=== PATIENT | female | born 1995 | race American Indian/Alaskan Native ===

== ENCOUNTER 2018-08-25 06:58 | Inpatient (IN) | payer MEDICAID ==
[2018-08-25] MEDS ORDERED: SUBLIMAZE ONE (07:31)
[2018-08-25] MEDS ORDERED: BRETHINE SUB-Q PRN (07:32)
[2018-08-25] MEDS ORDERED: BRETHINE IVP PRN (07:32)
[2018-08-25] MEDS ORDERED: SUBLIMAZE IV PRN (07:32)
[2018-08-25] MEDS ORDERED: XYLOCAINE 2% INFILTRATI NR (07:32)
[2018-08-25] MEDS ORDERED: AMPICILLIN/NS 2 GM/100 ML 2 GM/100 ML BAG IV ONE (07:36)
[2018-08-25] MEDS ORDERED: PITOCin/NS 30 UNIT/500ML 30 UNITS/500 ML BAG IV SCH (08:00)
[2018-08-25] MEDS ORDERED: LACTATED RINGERS 1,000 ML IV SCH (08:00)
[2018-08-25] MEDS ORDERED: PITOCin/NS 20 UNIT/1000ML DRIP 20 UNITS/1,000 ML BAG IV SCH (08:00)
[2018-08-25] MEDS ORDERED: LANSINOH TP PRN (09:43)
[2018-08-25] MEDS ORDERED: ZOFRAN IV PRN (09:43)
[2018-08-25] MEDS ORDERED: PHENERGAN PO PRN (09:43)
[2018-08-25] MEDS ORDERED: BENADRYL PO PRN (09:43)
[2018-08-25] MEDS ORDERED: TUCKS PAD TP PRN (09:43)
[2018-08-25] MEDS ORDERED: TYLENOL PO PRN (09:43)
[2018-08-25] MEDS ORDERED: NORCO 5/325 PO PRN (09:43)
--- NOTE | 2018-08-25 09:51 | History and Physical Report ---
History of Present Illness Date of examination: 08/25/18 (Pt arrived via EMS) Date of admission: 08/25/18 07:00 Chief complaint: Intense labor pains History of present illness: 23 yo AA Fe , MAURI 09/03/2018 (per pt; records not available) presents via EMS in active labor with SROM 08/25/2018 @ 06:20 (lg amt clear fluid). Pt reports care with [employer]. records not available (requested). Pt denies any medical history. Reports GBS swab done but she doesn't know the results. 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 denies: abnormal PAP smear, chlamydia, gonorrhea, hepatitis B, hepatitis C, herpes, HIV, syphilis, trichomonas Family/Genetic History: none Social history: no significant social history, single, lives with family (Family present and supportive), full code. denies: smoking, alcohol abuse, prescription drug abuse, IV drug use - Obstetrical History Expected Date of Delivery: 09/03/18 (Per pt report; PNR not available (requested)) Actual Gestation: 38 Week(s) 5 Day(s) : 4 Para: 0 Hx # Term Pregnancies: 0 Number of Pregnancies: 0 Spontaneous Abortions: 0 Induced : 3 Number of Living Children: 0 Medications and Allergies Allergies Allergy/AdvReac Type Severity Reaction Status Date / Time No Known Allergies Allergy Verified 07/11/14 02:54 Home Medications Medication Instructions Recorded Confirmed Last Taken Type Acetaminophen/Codeine [Tylenol #3] 1 tab PO Q6H PRN #20 tab 10/18/14 Unknown Rx Ondansetron [Zofran ODT TAB] 4 mg PO Q6H #20 tab.rapdis 10/18/14 Unknown Rx Pnv 21/Iron Ps,Heme Ppep/Folic 1 each PO QDAY #30 tablet 10/18/14 Unknown Rx [Prefera Ob Tablet] cephALEXin [Keflex] 500 mg PO Q6H #28 capsule 10/18/14 Unknown Rx Active Meds: Active Medications Ephedrine Sulfate (Ephedrine Sulfate) 10 mg IV Q2M PRN PRN Reason: Hypotension Fentanyl (Sublimaze) 100 mcg IV Q2H PRN PRN Reason: Labor Pain Lactated Ringer's (Lactated Ringers) 1,000 mls @ 125 mls/hr IV DIRECT ELIGIO Last Admin: 08/25/18 07:41 Dose: 125 mls/hr Documented by: Oxytocin/Sodium Chloride (Pitocin/Ns 20 Unit/1000ml Drip) 20 units in 1,000 mls @ 125 mls/hr IV DIRECT ELIGIO Oxytocin/Sodium Chloride (Pitocin/Ns 30 Unit/500ml) 30 units in 500 mls @ 1 mls/hr IV TITR ELIGIO; Protocol Lidocaine (Xylocaine 2%) 20 ml INFILTRATI ONCE NR Stop: 08/25/18 16:00 Mineral Oil (Mineral Oil) 30 ml PO QHS PRN PRN Reason: Constipation Terbutaline Sulfate (Brethine) 0.25 mg SUB-Q ONCE PRN PRN Reason: Hyperstimulation/Hypertonicity Stop: 08/25/18 16:00 Terbutaline Sulfate (Brethine) 0.25 mg IVP ONCE PRN PRN Reason: Hyperstimulation/Hypertonicity Stop: 08/25/18 16:00 Review of Systems Constitutional: other (Denies) Cardiovascular: no chest pain, no shortness of breath Respiratory: no shortness of breath Breasts: normal Gastrointestinal: no nausea, no vomiting, no diarrhea Genitourinary: normal appearance, vaginal bleeding (normal show), leakage of fluid (SROM 06:20, lg amt clear fluid), contractions (Reports contractions started at 6am), no genital sores Musculoskeletal: other (Denies) Integumentary: no rash, no sores, no lesions Neurological: other (Denies) Psychiatric: other (Denies) Endocrine: other (Denies) - Vital Signs Vital signs: Vital Signs Pulse BP 71 137/65 08/25/18 07:20 08/25/18 07:20 Temp Pulse Resp BP Pulse Ox 98.4 F 80 18 164/78 08/25/18 07:21 08/25/18 09:33 08/25/18 07:35 08/25/18 09:33 - Physical Exam Breasts: Positive: normal Cardiovascular: Regular rate, Normal S1, Normal S2, No murmurs Lungs: Positive: Clear to auscultation, Normal air movement Abdomen: Positive: normal appearance, soft, normal bowel sounds, other (Gravid). Negative: distention Genitourinary (Female): Positive: normal external genitalia, normal perenium (Clear fluid noted) Vulva: both: normal Vagina: Positive: normal moisture (Clear fluid leaking) Uterus: Positive: enlarged (gravid) Anus/Rectum: Positive: normal perianal skin Extremities: Positive: normal Deep Tendon Reflex Grade: Normal +2 - Obstetrical FHR: category 1 Uterine Contraction Monitor Mode: External Cervical Dilatation: 8 (On admission per sap senior developer) Cervical Effacement Percentage: 100 station: 0 Uterine Contraction Frequency (min): 2-3 Uterine Contraction Duration: 60-90 Uterine Contraction Pattern: Regular Uterine Tone Measurement Phase: Resting Uterine Contraction Intensity: Strong/Firm Results All other labs normal. Assessment and Plan A: Term IUP at 38w5d (per pt; PNR not available) GBS unknown Category 1 tracing SROM 08/25/2018 @ 06:20, lg amt clear fluid Active labor P: Admit to L&D; Routine labor orders GBS prophylaxis Anticipate
[2018-08-25] MEDS ORDERED: DULCOLAX PR PRN (10:00)
[2018-08-25] MEDS ORDERED: SODIUM CHLORIDE FLUSH SYRINGE 10 ML IV NR (10:00)
--- NOTE | 2018-08-25 10:02 | Procedure Note ---
OB Delivery Note - Delivery Date of Delivery: 08/25/18 (08:47) Surgeon: BIB GERMAN (ENRRIQUE) Estimated blood loss: 200cc - Vaginal Delivery presentation: vertex Delivery position: OA Intrapartum events: precipitous labor- <3hr Delivery induction: none Delivery monitor: external FHT, external uterine Route of delivery: (08:47) Delivery placenta: spontaneous (08:55) Delivery cord: 3 umbilical vessels Delivery laceration: 2nd degree Delivery repair: vicryl (2-[address]) Delivery comments: viable female SOL presentation at 08:47. Vigorous infant placed [id number]-[id number] on mothers abdomen. Delayed cord clamping, then cut by Pt mother with my guidance. Cord blood collected per hospital protocol. Spontaneous ochoa delivery of intact placenta at 08:55. 3VC. Discarded. FF@U-2, bleeding small. 2nd degree perineal laceration repaired under local anesthesia using 2-[address] Pt tolerated well. EBL 200cc. and mother left in stable condition in L&D. - A at 1 minute: 8 at 5 minutes: 9 Gender: Female (7lbs 9oz, 3201 grams, 18.5")
[2018-08-25 11:08] LABS: Hematocrit 24.5 % (30.3-42.9); Hemoglobin 7.6 gm/dl (10.1-14.3); Mean Corpuscular HGB Conc 31 % (30-34); Mean Corpuscular Volume 74 fl (79-97); Platelet Count 190 K/mm3 (140-440); Red Cell Distribution Width 17.2 % (13.2-15.2)
[2018-08-25] MEDS: IBUPROFEN PO SCH ×3 (12:33→18:13)
[2018-08-25] MEDS ORDERED: MILK OF MAGNESIA PO PRN (22:00)
[2018-08-25] MEDS ORDERED: MINERAL OIL PO PRN (22:00)
[2018-08-25 22:39] LABS: Hematocrit 20.6 % (30.3-42.9); Hemoglobin 6.8 gm/dl (10.1-14.3)
[2018-08-26] MEDS: IBUPROFEN PO SCH ×3 (01:59→18:45)
--- NOTE | 2018-08-26 10:29 | Progress Note ---
Assessment and Plan A: day 1 S/P spontaneous vaginal delivery. Severe anemia due to and blood loss. P: Patient refused blood transfusion for severe anemia. Supplement with iron TID. Advised patient re: iron rich foods. Subjective - Subjective Date of service: 08/26/18 Principal diagnosis: day 1 S/P Interval history: day 1 S/P spontaneous vaginal delivery. Patient is doing well. She is voiding without difficulty, ambulating well, and tolerating a regular diet. Patient reports small amount of lochia and no clots. Patient denies headache, dizziness, fatigue, shortness of breath, chest pain, abdominal pain, leg pain, or heavy vaginal bleeding. Patient refused blood transfusion for severe anemia. Patient reports: appetite normal, voiding normally, pain well controlled, flatus, ambulating normally, no dizzy ambulation, no nauseated : doing well Objective - Vital Signs Latest vital signs: Vital Signs Temp Pulse Resp BP BP Pulse Ox 08/26/18 02:59 18 08/26/18 01:59 18 08/25/18 23:00 98.6 F 78 18 117/74 08/25/18 21:43 98.4 F 52 L 18 133/67 99 08/25/18 19:13 18 08/25/18 18:47 144/77 08/25/18 17:28 99.2 F 51 L 20 162/87 99 08/25/18 11:45 98.7 F 63 18 131/80 97 08/25/18 10:47 76 145/81 08/25/18 10:32 71 143/78 Intake and Output 08/25/18 08/26/18 08/26/18 23:59 07:59 15:59 Intake Total 240 360 Balance 240 360 Intake: Intake, Free Water 240 360 Other: # Voids Void 1 1 - Exam Cardiovascular: Present: Regular rate, Normal S1, Normal S2 Lungs: Present: Clear to auscultation Abdomen: Present: normal appearance, soft. Absent: distention, tenderness, guarding, rigidity Uterus: Present: normal, firm, fundal height below umbilicus Extremities: Present: normal. Absent: tenderness, edema - Labs Labs: Abnormal lab results 08/25/18 08/25/18 Range/Units 10:55 22:15 WBC 13.2 H (4.5-11.0) K/mm3 RBC 3.30 L (3.65-5.03) M/mm3 Hgb 7.6 L 6.8 L (10.1-14.3) gm/dl Hct 24.5 L 20.6 L (30.3-42.9) % MCV 74 L (79-97) fl MCH 23 L (28-32) pg RDW 17.2 H (13.2-15.2) %
[2018-08-26] MEDS: FEOSOL PO SCH ×2 (12:49→20:48)
[2018-08-26] MEDS ORDERED: NACL 0.9% 500 ML 500 ML IV SCH (17:06)
--- NOTE | 2018-08-26 17:17 | Event Note ---
I aad detailed discussion with patient and her mother concerning her severe anemia (6.8/20.6). The patient does admit she feels her heart beating in her chest. She has gotten up from her bed 5x but denies lightheaded or dizziness. She states she was prescribed iron pills during her course but they "made her sick" so she stopped taking them. We discussed the interval between pregnancies and importance of rebuilding iron stores before re-attempting . We had detailed discussion about the risk of of blood transfusions including but not limited to viral, bacterial and acute blood reactions. I explained to patient she has option of taking intramuscular iron but that would take several days to weeks to have an effect. After some consideration, she has agreed to a blood transfusion for severe anemia due majority chronic anemia and in part due to acute blood loss associated with routine vaginal delivery. Plan: 1. Pretreat with Tylenol 650mg PO x 1 and Benadryl 25mg PO X1. 2. Type, cross and transfusion 2 units packed red blood cells. 3. Recheck CBC 4 hrs post-transfusion.
[2018-08-27] MEDS: FEOSOL PO SCH (08:00)
[2018-08-27 12:27] LABS: Hematocrit 28.7 % (30.3-42.9); Hemoglobin 9.1 gm/dl (10.1-14.3)
--- NOTE | 2018-08-27 17:15 | Progress Note ---
Assessment and Plan S: day 2 S/P spontaneous vaginal delivery. Anemia secondary to and blood loss. P: Discharge patient home today. Advised patient to continue her vitamins and iron supplements (iron TID) at home. discharge instructions and warning signs discussed with patient. Advised patient to avoid driving, itercourse, lifting and heavy housework. Advised patient to follow up at [facility] in 2 weeks. Patient voiced understanding of instructions. Subjective - Subjective Date of service: 08/27/18 Principal diagnosis: day 2 S/P Interval history: day 2 S/P spontaneous vaginal delivery. Patient is doing well. She is voiding without difficulty, ambulating well, and tolerating a regular diet. Patient reports small amount of lochia and no clots. Patient denies headache, dizziness, fatigue, shortness of breath, chest pain, abdominal pain, leg pain, or heavy vaginal bleeding. Patient took blood transfusion for anemia. Has been taking iron TID. Patient reports: appetite normal, voiding normally, pain well controlled, flatus, ambulating normally, no dizzy ambulation, no nauseated [place]: doing well Objective - Vital Signs Latest vital signs: Vital Signs Temp Pulse Resp BP BP Pulse Ox 08/27/18 07:52 98.2 F 53 L 18 127/88 08/27/18 05:37 98.9 F 57 L 20 151/88 08/27/18 05:07 98.8 F 59 L 20 152/90 08/27/18 04:37 98.5 F 51 L 20 137/91 99 08/27/18 04:07 98.6 F 54 L 20 150/84 08/27/18 03:52 97.9 F 52 L 20 157/85 08/27/18 02:40 98.2 F 52 L 20 155/92 99 08/27/18 02:29 98.3 F 53 L 20 141/72 08/27/18 01:59 98.0 F 51 L 20 141/88 08/27/18 01:29 98.0 F 52 L 20 142/79 08/27/18 00:59 98.5 F 52 L 18 140/81 08/27/18 00:29 98.9 F 53 L 18 128/71 08/27/18 00:14 98.7 F 82 18 105/56 08/27/18 00:00 98.2 F 53 L 18 140/71 98 08/26/18 20:51 98.6 F 54 L 18 142/93 97 08/26/18 18:45 20 Intake and Output 08/27/18 08/27/18 08/27/18 07:59 15:59 23:59 Intake Total 980 Balance 980 Intake: Oral 480 Blood Product 500 Leukoreduced Red Blood 250 Cells Unit [id number] Leukoreduced Red Blood 250 Cells Unit [id number] Other: Total, Intake Amount 480 - Exam Cardiovascular: Present: Regular rate, Normal S1, Normal S2, Other Lungs: Present: Clear to auscultation Abdomen: Present: normal appearance, soft. Absent: distention, tenderness, guarding, rigidity Uterus: Present: normal, firm, fundal height below umbilicus. Absent: bogginess, tenderness Extremities: Present: normal. Absent: tenderness, edema - Labs Labs: Abnormal lab results 08/25/18 08/27/18 Range/Units 10:55 11:49 Hgb 9.1 L (10.1-14.3) gm/dl Hct 28.7 L D (30.3-42.9) % Crossmatch See Detail
--- NOTE | 2018-08-27 17:18 | Discharge Summary ---
<RON GONZALEZ - Last Filed: 08/27/18 17:16> Providers - Providers Date of Admission: 08/25/18 07:00 Date of discharge: 08/27/18 Attending physician: DWAYNE SÁNCHEZ MD None Primary care physician: DWAYNE SÁNCHEZ MD Hospitalization Reason for admission: active labor Delivery: Episiotomy: none Laceration: 2nd degree Other procedures: none complications: none Discharge diagnosis: IUP at term delivered baby: female Pertinent studies: Labs Hospital course: Blood transfusion for severe anemia; otherwise normal hospital course. Condition at discharge: Good Disposition: DC-01 TO HOME OR SELFCARE - Discharge Diagnoses (1) Term delivered Status: Acute (2) Anemia, blood loss Status: Acute Plan - Provider Discharge Summary Activity: routine, no sex for 6 weeks, no heavy lifting 4 weeks, no strenuous exercise Diet: routine Instructions: routine Additional instructions: Take your vitamins and iron supplements at home. Call your doctor immediately for: * Fever > 100.5 * Heavy vaginal bleeding ( >1 pad per hour) * Severe persistent headache * Shortness of breath * Reddened, hot, painful area to leg or breast - Follow up plan Follow up: DWAYNE SÁNCHEZ MD [Primary Care Provider] - 14 Days <RADHA KING - Last Filed: 08/28/18 01:27> Providers - Providers Date of Admission: 08/25/18 07:00 Attending physician: DWAYNE SÁNCHEZ MD Primary care physician: DWAYNE SÁNCHEZ MD Hospitalization Pertinent studies: Laboratory Tests 08/25/18 08/25/18 08/25/18 10:55 10:55 10:55 WBC 13.2 H RBC 3.30 L Hgb 7.6 L Hct 24.5 L MCV 74 L MCH 23 L MCHC 31 RDW 17.2 H Plt Count 190 Sodium Potassium Chloride Carbon Dioxide Anion Gap BUN Creatinine Estimated GFR BUN/Creatinine Ratio Glucose Calcium Total Bilirubin AST ALT Alkaline Phosphatase Total Protein Albumin Albumin/Globulin Ratio Urine Color Urine Turbidity Urine pH Ur Specific [place] Urine Protein Urine Glucose (UA) Urine Ketones Urine Blood Urine Nitrite Urine Bilirubin Urine Urobilinogen Ur Leukocyte Esterase Urine WBC (Auto) Urine RBC (Auto) RPR Nonreactive Blood Type A POSITIVE Antibody Screen Negative Crossmatch See Detail 08/25/18 08/27/1819 22:15 11:49 20:07 WBC 12.1 H RBC 3.68 Hgb 6.8 L 9.1 L 9.2 L Hct 20.6 L 28.7 L D 28.2 L MCV 77 L MCH 25 L MCHC 33 RDW 19.1 H Plt Count 200 Sodium Potassium Chloride Carbon Dioxide Anion Gap BUN Creatinine Estimated GFR BUN/Creatinine Ratio Glucose Calcium Total Bilirubin AST ALT Alkaline Phosphatase Total Protein Albumin Albumin/Globulin Ratio Urine Color Urine Turbidity Urine pH Ur Specific [place] Urine Protein Urine Glucose (UA) Urine Ketones Urine Blood Urine Nitrite Urine Bilirubin Urine Urobilinogen Ur Leukocyte Esterase Urine WBC (Auto) Urine RBC (Auto) RPR Blood Type Antibody Screen Crossmatch 08/27/18 08/27/18 20:07 20:45 WBC RBC Hgb Hct MCV MCH MCHC RDW Plt Count Sodium 135 L Potassium 3.8 Chloride 104.3 Carbon Dioxide 22 Anion Gap 13 BUN 7 Creatinine 0.6 L Estimated GFR > 60 BUN/Creatinine Ratio 12 Glucose 78 Calcium 8.0 L Total Bilirubin 0.30 AST 36 ALT 17 Alkaline Phosphatase 280 H Total Protein 5.6 L Albumin 3.0 L Albumin/Globulin Ratio 1.2 Urine Color Straw Urine Turbidity Clear Urine pH 7.0 Ur Specific [place] 1.006 Urine Protein <15 mg/dl Urine Glucose (UA) Neg Urine Ketones Neg Urine Blood Mod Urine Nitrite Neg Urine Bilirubin Neg Urine Urobilinogen < 2.0 Ur Leukocyte Esterase Tr Urine WBC (Auto) 7.0 H Urine RBC (Auto) 125.0 RPR Blood Type Antibody Screen Crossmatch - Discharge Diagnoses (1) Anemia due to acute blood loss Status: Acute Comment: s/p blood transfusion. Discharge home on supplemental iron also. (2) Anemia, blood loss Status: Acute Plan - Provider Discharge Summary Additional instructions: [] Smoking cessation referral if applicable(refer to patient education folder for contact #) [] Refer to [facility] Booklet Call your doctor immediately for: * Fever > 100.5 * Heavy vaginal bleeding ( >1 pad per hour) * Severe persistent headache * Shortness of breath * Reddened, hot, painful area to leg or breast * Drainage or odor from incision. * Keep incision clean and dry at all times and follow doctor's instructions regarding bathing/showering
[2018-08-27] MEDS: IBUPROFEN PO SCH (18:47)
[2018-08-27 20:38] LABS: Hematocrit 28.2 % (30.3-42.9); Hemoglobin 9.2 gm/dl (10.1-14.3); Mean Corpuscular HGB Conc 33 % (30-34); Mean Corpuscular Volume 77 fl (79-97); Platelet Count 200 K/mm3 (140-440); Red Blood Count 3.68 M/mm3 (3.65-5.03); Red Cell Distribution Width 19.1 % (13.2-15.2)
[2018-08-27 20:44] LABS: Alanine Aminotransferase 17 units/L (7-56); BUN/Creatinine Ratio 12; Blood Urea Nitrogen 7 mg/dL (7-17); Hemolysis Index 2
[2018-08-27 21:03] LABS: Bilirubin,Urine NEG (Negative); Blood,Urine MOD (Negative); Color,Urine Straw (Yellow); Protein,Urine <15 mg/dL mg/dL (Negative); Urobilinogen,Urine < 2.0 mg/dL (<2.0)
[2018-08-28] MEDS: FEOSOL PO SCH ×2 (00:15→08:12)
[2018-08-28] MEDS: IBUPROFEN PO SCH ×3 (00:16→09:13)
--- NOTE | 2018-08-28 07:03 | Event Note ---
Date: 08/28/18 Patient started on PO Labetalol. Preeclamptic labs negative.
[2018-08-28] MEDS ORDERED: NORMODYNE PO SCH ×3 (08:00→22:00)
[2018-08-28 11:39] VITALS: BP 156/88
[2018-08-28] MEDS ORDERED: COLACE PO SCH (22:00)
== END 2018-08-28 14:25 | disposition home or self-care (01) | DRG 775 ==
LOC: TRG 06:58 → LD 07:00 → OB 11:27
PROVIDERS: ADMIT Obstetrics & Gynecology; ATTEND Obstetrics & Gynecology
PROC: 10E0XZZ Delivery of Products of Conception, External Approach (ICD-10-PCS; principal; 2018-08-25)
PROC: 0KQM0ZZ Repair Perineum Muscle, Open Approach (ICD-10-PCS; 2018-08-25)
PROC: 30233N1 Transfusion of Nonautologous Red Blood Cells into Peripheral Vein, Percutaneous Approach (ICD-10-PCS; 2018-08-27)
DX: O62.3 Precipitate labor (principal); Z3A.38 38 weeks gestation of pregnancy; Z37.0 Single live birth; O99.02 Anemia complicating childbirth; D50.0 Iron deficiency anemia secondary to blood loss (chronic); O70.1 Second degree perineal laceration during delivery
CPT/HCPCS: 36415; 59025; 80053; 81001; 85014; 85018; 85027; 86592; 86850; 86900; 86901; 86920; 96360; 96374; G0378; J0290; J2590; J3010; J7040; J7120; P9016

== ENCOUNTER 2019-08-22 19:17 | Emergency (ER) | payer MEDICAID | END 2019-08-22 19:40 | disposition left against medical advice (07) | LOC: ED 19:17 | DX: M79.604 Pain in right leg (principal); Z53.21 Procedure and treatment not carried out due to patient leaving prior to being seen by health care provider ==